=== PATIENT | female | born 1965 | race Caucasian/White ===

== ENCOUNTER 2016-11-02 12:35 | Day surgery (SDC) | payer MEDICARE, MEDICAID ==
[~2016-11-02] VITALS: Ht 177.8 cm; Wt 86.0 kg
[~2016-11-02 12:35] MED LIST: CYCL5TAB PO; TRAM50TA2 PO
[2016-11-02] MEDS ORDERED: Iohexol 240 mg/mL 10 mL Inj ONE (12:36)
[2016-11-02] MEDS ORDERED: Lidocaine PF 1% 5 mL Inj ONE (12:36)
[2016-11-02] MEDS ORDERED: Dexamethasone 10 mg/mL Inj ONE (12:36)
[2016-11-02 13:03] VITALS: BP 146/92; PULSE 91; RESP 16; O2SAT 96
[2016-11-02 13:28] VITALS: BP 159/90; PULSE 90; RESP 16; O2SAT 97
[2016-11-02 13:32] VITALS: BP 148/93; PULSE 86; RESP 14; O2SAT 97
[2016-11-02 13:35] VITALS: BP 135/84; PULSE 87; RESP 16; O2SAT 98
[2016-11-02 13:54] VITALS: BP 144/93; PULSE 79; RESP 16; O2SAT 98
--- NOTE | 2016-11-02 15:08 | PCM.PROC ---
Procedure Note Date of Service: November 02, 2016 Pre Procedure Diagnosis: PROCEDURE: Lumbar Interlaminar epidural steroid injection. L5-S1 ASA / ANTI-COAGULATION . No asa x 7 days. PRE-PROCEDURE DIAGNOSIS: Lumbar spinal stenosis POST-PROCEDURE DIAGNOSIS: same INDICATION: 59-year-old patient with low back and leg pain consistent with lumbar spinal stenosis PERFORMED BY: Tato Gill MD DESCRIPTION OF PROCEDURE: Patient was met in the holding area. Consent was signed, site was confirmed and all questions were answered. Patient was taken to the procedure suite and placed prone on the procedure table. Area was prepped and draped in sterile fashion. Local anesthesia with 1% lidocaine was injected. An 18-gauge Touhy needle was advanced toward the interlaminar space using fluoroscopic guidance after optimizing the AP view. A loss of resistance syringe was attached as we approached the epidural space in the lateral view. After [id number] was obtained, radioopaque contrast was injected under live fluro which confirmed epidural placement without intravascular uptake. Then , 80 mg depomedrol was injected without difficulty. ANESTHESIA: Local. EBL: None. No Blood Products Used COMPLICATIONS: None SPECIMENS: None POST-PROCEDURE DISPOSITION: Patient was returned to the holding area in stable condition. They were discharged home when all discharge criteria were met. Evaluation/Physical Exam before discharge revealed: DISCHARGE MEDICATIONS: FOLLOW UP: Keep scheduled follow-up Tato Gill MD * Pain Management * Anesthesiology .ED: Y: Patient given care and follow up instructions Tato Gill MD November 02, 2016 15:08
== END 2016-11-02 23:59 | disposition home or self-care (01) ==
LOC: END 12:35
PROVIDERS: ATTEND Anesthesiology Pain Medicine
DX: M54.12 Radiculopathy, cervical region (principal)
CPT/HCPCS: 64479; J1100